=== PATIENT | female | born 1965 | race Caucasian/White ===

== ENCOUNTER 2017-01-10 10:07 | Observation (INO) | payer BC, OTHER ==
[2016-12-30 14:44] VITALS: BMI 42.0
--- NOTE | 2016-12-30 15:13 | PAT Medication Instructions ---
Service Date Dec 30, 2016. Current Home Medication List Acetaminophen Tab (Tylenol), 650 MG PO PRN Amlodipine (Norvasc), 5 MG PO HS Atorvastatin (Lipitor), 10 MG PO HS Ergocalciferol (Vitamin D 78683 Unit), 50,000 UNIT PO Q3D Escitalopram Oxalate (Lexapro), 20 MG PO HS Ethinyl Estrad/Norgestimate (Sprintec 28), 1 TAB PO HS Ibuprofen (Advil), 600 MG PO QAM Lamotrigine (Lamictal), 150 MG PO BID Trazodone Hcl (Trazodone), 100 MG PO HS [Demaadex], 2 TAB PO PRN [Omeprazole], 1 TAB PO PRN [Vitamin B12], 1 ML INJ [id number] Medication Instructions For Your Scheduled Surgery Ethinyl Estrad/Norgestimate (Sprintec 28), 1 TAB PO HS (will finish prior to surgery) Vitamin B12 1 ML INJ [id number] (continue as usual) - Hold the following medications the morning of surgery: Ibuprofen (Advil), 600 MG PO QAM (not told to stop by surgeon/only takes occasionally) Ergocalciferol (Vitamin D 97013 Unit), 50,000 UNIT PO Q3D Demadex 2 TAB PO PRN - Take the following medications the morning of surgery with a sip of water: Omeprazole, 1 TAB PO PRN Lamotrigine (Lamictal), 150 MG PO BID Acetaminophen Tab (Tylenol), 650 MG PO PRN (if needed) - Take the following medications as scheduled the night before surgery: Trazodone Hcl (Trazodone), 100 MG PO HS Lamotrigine (Lamictal), 150 MG PO BID Escitalopram Oxalate (Lexapro), 20 MG PO HS Amlodipine (Norvasc), 5 MG PO HS Atorvastatin (Lipitor), 10 MG PO HS Acetaminophen Tab (Tylenol), 650 MG PO PRN (if needed) If you have any questions please call us at [phone] or [phone] ( [place]) or [phone]
[2016-12-30 15:42] LABS: BASO % 0.4 %; BASO ABS # 0.04 K/uL (0-0.2); COMPLETE YES; EOS % 4.8 %; HEMATOCRIT 30.8 % (37-47); IG% 0.2 %; LYMPH % 19.9 %; LYMPH ABS # 1.87 K/uL (1.2-3.4); MEAN CELL VOLUME 79.6 fL (80-100); MEAN CORPUSCULAR HEMOGLOBIN 25.6 pg (25-34); MEAN CORPUSCULAR HGB CONC 32.1 g/dl (32-36); MEAN PLATELET VOLUME 9.5 fL (7.4-10.4); MONO % 7.1 %; NEUT % 67.6 %; PLATELET COUNT 456 K/uL (130-400); RED BLOOD COUNT 3.87 M/uL (4.2-5.4); WHITE BLOOD COUNT 9.41 K/uL (4.8-10.8)
[2016-12-30 16:11] LABS: CALCIUM 8.8 mg/dl (8.5-10.1); POTASSIUM 4.4 mmol/L (3.5-5.1)
[~2017-01-10] VITALS: Ht 160 cm; Wt 107.6 kg
[2017-01-10] VITALS (11 sets, daily range): BP systolic 107–154; BP diastolic 74–81; PULSE 85–95; TEMP 36.6–37.2; O2SAT 88–100; Ht 160 cm; Wt 107.6 kg
[~2017-01-10 10:07] MED LIST: ACET325T96 PO; AMLO-110 PO; ATOR10TA88 PO; CEFAZOLIN 3000 MG/65 ML D5W 50 ML IV SCH; ERGO500037 PO; ESCI1TAB10 PO; IBUP-1050 PO; LACTATED RINGER'S 1000ML 1,000 ML IV SCH; LAMO150T32 PO; OMEPRAZOLE PO; SPR28 PO; TRAZ100T29 PO; VITAMIN B12 INJ; [UNRECOGNIZED DRUG - OTHER] PO
[2017-01-10] MEDS: LACTATED RINGER'S 1000ML 1,000 ML IV SCH ×2 (10:50→20:21)
[2017-01-10 11:00] LABS: HEMATOCRIT 28.7 % (37-47); MEAN CELL VOLUME 78.6 fL (80-100); MEAN CORPUSCULAR HEMOGLOBIN 24.4 pg (25-34); MEAN PLATELET VOLUME 9.4 fL (7.4-10.4); PLATELET COUNT 390 K/uL (130-400); RED BLOOD COUNT 3.65 M/uL (4.2-5.4)
[2017-01-10 11:17] LABS: PREG INTERNAL NEGATIVE QC NEG CLEAR BACKGROUND; PREG INTERNAL POSITIVE QC POS CONTROL LINE
--- NOTE | 2017-01-10 12:30 | History & Physical Bridge Note ---
H&P Re-Evaluation Bridge Note: I have examined the patient, reviewed the History & Physical and in the interval since the performance of the History & Physical I have noted the following changes of clinical significance: Discussed with patient that, including removal of uterus/cervix, will plan to remove bilateral fallopian tubes - patient agreeable. While the plan is not to remove ovaries, if indicated during case, patient consents to removal of one or both ovaries if needed. Allergy to penicillin (rash) - patient has tolerated keflex in the past and will plan to use Ancef 3g as antibiotic prophylaxis. Patient requests that she receive vicodin for postop pain control instead of percocet, as she feels like percocet does not let her sleep. Rx given to family to have filled.
[2017-01-10] MEDS ORDERED: HYDR-5688 PO (12:31)
[2017-01-10] MEDS ORDERED: BUPIVACAINE 0.5 % 5 MG/1 ML MPF 30ML VIAL ONE (12:32)
[2017-01-10] MEDS ORDERED: METHYLENE BLUE 0.5% 10 ML VIAL ONE (12:32)
[2017-01-10] MEDS ORDERED: MIDAZOLAM HCL 1 MG/ML 2ML VIAL ONE (12:34)
[2017-01-10] MEDS ORDERED: FENTANYL CITRATE INJ 50 MCG/1 ML 2 ML VIAL ONE (12:34)
[2017-01-10] MEDS ORDERED: PHENYLEPHRINE HCL INJ 10 MG/ML VIAL ONE (13:27)
[2017-01-10] MEDS ORDERED: ONDANSETRON INJ 2 MG/ML 2 ML VIAL ONE (13:27)
[2017-01-10] MEDS ORDERED: PROPOFOL IV EMULSION 10 MG/ML 20 ML VIAL IV ONE (13:27)
[2017-01-10] MEDS ORDERED: NEOSTIGMINE METHYLSULFATE 5 MG/5 ML SYR ONE (13:27)
[2017-01-10] MEDS ORDERED: LARYING-O-JET KIT (LTA) EXT ONE ×2 (13:27)
[2017-01-10] MEDS ORDERED: DEXAMETHASONE SOD INJ 4 MG/ML VIAL ONE (13:27)
[2017-01-10] MEDS ORDERED: LIDOCAINE HCL 2% 2 ML VIAL (20MG/ML) ONE (13:27)
[2017-01-10] MEDS ORDERED: ROCURONIUM BROMIDE 10 MG/ML 5 ML VIAL ONE (13:27)
[2017-01-10] MEDS ORDERED: KETOROLAC TROMETHAMINE 30 MG/ML VIAL ONE (13:27)
[2017-01-10] MEDS ORDERED: ATROPINE SULFATE 0.1 MG/ML 5ML SYR IV PRN (13:30)
[2017-01-10] MEDS ORDERED: PHENYLEPHRINE 100MCG/ML 5ML SYR IV PRN (13:30)
[2017-01-10] MEDS ORDERED: ONDANSETRON INJ 2 MG/ML 2 ML VIAL IV PRN ×2 (13:30→16:45)
[2017-01-10] MEDS ORDERED: EpHEDrine SULFATE INJ 50 MG/ML AMP IV PRN (13:30)
[2017-01-10] MEDS ORDERED: PHENYLEPHRINE 100MCG/ML 5ML SYR ONE (15:13)
[2017-01-10] MEDS ORDERED: EpHEDrine SULFATE 50MG/5ML SYR ONE (15:20)
[2017-01-10] MEDS ORDERED: TISSEEL FIBRIN SEALANT 4ML TOP ONE (16:15)
--- NOTE | 2017-01-10 16:32 | [facility] Post Operative Brief Note ---
Immediate Operative Summary Operative Date Jan 10, 2017. Pre-Operative Diagnosis Dysfunctional Uterine Bleeding, Uterine fibroids Post-Operative Diagnosis Same as preop Procedure(s) Performed Total Laparoscopic Hysterectomy Bilateral Salpingectomy Robot Assist, Cystoscopy Surgeon Dr. Martinez Garment Folder Surgeon(s) Dr. Alfredo Estimated Blood Loss 25 ml Findings Enlarged uterus with multiple fibroids. Normal appearing tubes and ovaries. Bladder appears normal with bilateral urine jets from ureters. Specimens A. Cervix, Uterus, and Bilateral Fallopian Tubes Drains Hester, clear blue-yellow Anesthesia General Complication(s) None Disposition Recovery Room / PACU
[2017-01-10] MEDS: HYDROmorphone INJ 2 MG/ML SYR/VIAL IV PRN ×2 (16:40→16:50)
[2017-01-10] MEDS ORDERED: PROMETHAZINE HCL INJ 25 MG in SODIUM CHLORIDE 0.9% 50ML 50 ML IV PRN (16:45)
[2017-01-10] MEDS ORDERED: SIMETHICONE 80 MG CHEW PO PRN (16:45)
[2017-01-10] MEDS ORDERED: IBUPROFEN 600 MG TAB PO PRN (16:45)
[2017-01-10] MEDS ORDERED: ZOLPIDEM TARTRATE 5 MG TAB PO PRN (16:45)
[2017-01-10] MEDS ORDERED: MAGNESIUM HYDROXIDE SUSP 30 ML UDC PO PRN (16:45)
[2017-01-10] MEDS ORDERED: KETOROLAC TROMETHAMINE 30 MG/ML VIAL IV. PRN (16:45)
[2017-01-10] MEDS ORDERED: HYDROCODONE/ACETAMOPHEN 5/325MG TAB PO PRN ×2 (16:45)
--- NOTE | 2017-01-10 17:01 | Anesthesiology Progress Note ---
Anesthesia Post Op Note Date & Time Jan 10, 2017 at 17:01 Vital Signs Pain Intensity: 6 Vital Signs Past 12 Hours Date Time Temp Pulse Resp B/P Pulse Ox O2 Delivery O2 Flow Rate FiO2 01/10/17 16:43 117/80 01/10/17 16:40 91 16 01/10/17 16:40 90 16 100 01/10/17 16:38 138/84 01/10/17 16:35 92 16 01/10/17 16:35 92 16 100 01/10/17 16:33 112/90 01/10/17 16:30 36.4 104 16 129/73 98 Mask 10 01/10/17 16:30 97 14 01/10/17 16:30 97 14 100 01/10/17 10:40 37.2 95 20 154/77 97 Room Air Notes Mental Status: alert / awake / arousable, participated in evaluation Pt Amnestic to Procedure: Yes Nausea / Vomiting: adequately controlled Pain: adequately controlled Airway Patency, RR, SpO2: stable & adequate BP & HR: stable & adequate Hydration State: stable & adequate Anesthetic Complications: no major complications apparent
--- NOTE | 2017-01-10 17:14 | Discharge Instructions ---
Discharge Instructions Admission Reason for Admission: Abnormal Menses, Dysfunction Uterine Bleeding, Fib Discharge Discharge Diagnosis / Problem: s/p robotic-assisted laparoscopic hysterectomy Discharge Goals Goal(s): Routine recovery after surgery Activity Recommendations Activity Limitations: per Instructions/Follow-up section . Instructions / Follow-Up Instructions / Follow-Up POST OPERATIVE: BOWEL FUNCTION/MEDICATIONS: 1. Constipation pain and discomfort are the most common complaints 5-7 days after surgery. Points 2-6 address the things that can help. 2. Chewing gum can help stimulate the gut and help improve digestion and motility. 3. Milk of Magnesia 1-2 times per day until return of bowel function. 4. Colace is a stool softener that helps. Taking this 2-3 times per day until bowel function returns to normal is highly recommended. 5. Dulcolax is a laxative that may be used if several days have passed without a bowel movement. Alternatively Miralax may be used daily instead. 6. Drink plenty of fluids as this will also reduce constipation. 7. Narcotic pain medications will be prescribed by your physician. They are safe to use and we encourage you to use them. If you are not allergic, ibuprofen will also be prescribed. Many patients will be able to transition off of the narcotic medications to ibuprofen by postoperative day 3. ACTIVITY RECOMMENDATIONS: 1. Get plenty of rest and listen to your body. If you are tired, take a nap. 2. You may shower, but do not take a tub bath until you see your doctor at the 2 week post operative visit. 3. Absolutely NO intercourse and nothing in the vagina until you are examined by your doctor at the 6 week visit. At that visit it will be determined when such activities can be resumed. This can range from 6-12 weeks after your surgery depending on healing time. 4. The main physical activity in the first week should be walking. By the second week you can slowly increase activity. There are no limits on walking up and down stairs. 5. Do not lift more than 5-10 lbs for 4 weeks. Remember the "one-handed rule", i.e. if you can lift something with only one hand it's likely okay. 6. Minimize audioprosthologist like vacuuming and exercising for 4 weeks. "Overdoing it" can lead to incisions not healing, pain and vaginal bleeding , so again, listen to your body. 7. Driving can be resumed when you feel able. Do not drive within 24 hours of taking a narcotic medication. EXPECTATIONS: 1. Vaginal spotting, bleeding and discharge are common after surgery. There may even be an odor to the discharge which is often related to sutures used in the vagina. If you experience heavy vaginal bleeding, call the office number day or night [phone]. 2. Bladder discomfort is common after surgery from the catheter. This usually resolves in 1-2 weeks. 3. By the end of the 3rd or 4th week you should be feeling much better. It may take up to 6 weeks for your energy levels to return to normal. 4. Narcotic medications have side effects such as: dizziness, headache, nausea and/or vomiting. If you suspect your pain medication is causing problems, call our office and we may be able to prescribe an alternate medication. 5. The skin incisions are often covered with a liquid bandage. This will gradually peel off over time. CALL THE OFFICE IF YOU HAVE ANY OF THE FOLLOWIN. Temperature of 101 degrees or higher. 2. Severe abdominal or pelvic pain not relieved by pain medication. 3. Persistent nausea or vomiting. 4. Increased pain with urination or difficulty urinating. 5. Bright red bleeding that soaks more than 1 pad per hour. CONTACT PHONE NUMBERS: Main Office: [phone] Surgical Nurse: [phone] extension [phone] Avoid all tobacco products. If you need help to stop smoking, call [place]'s FREE QUITLINE at . This is a free call. Current Hospital Diet Patient's current hospital diet: Discharge Diet Recommended Diet: Regular Diet Procedures Procedures Performed: Total Laparoscopic Hysterectomy Bilateral Salpingectomy Robot Assist, Cystoscopy Pending Studies Studies pending at discharge: no Medical Emergencies . Who to Call and When: Medical Emergencies: If at any time you feel your situation is an emergency, please call 911 immediately. . Non-Emergent Contact Non-Emergency issues call your: Primary Care Provider, Electric Motor Tester Assembler . . "Provider Documentation" section prepared by Flora Martinez. VTE Core Measure Inpt VTE Proph given/why not?: Enoxaparin (Lovenox)SQ
[2017-01-10] MEDS: IV FLUIDS COMPLETED PRN ×2 (20:21→23:20)
[2017-01-10 20:39] LABS: HEMATOCRIT 28.2 % (37-47)
[2017-01-10] MEDS: DOCUSATE SODIUM 100 MG CAP PO SCH (20:46)
[2017-01-10 20:51] LABS: INR 1.1 (0.9-1.1); PARTIAL THROMBOPLASTIN RATIO 0.9; PROTHROMBIN TIME (PATIENT) 11.3 SECONDS (9.0-12.0)
[2017-01-10] MEDS ORDERED: ATORVASTATIN 10 MG TAB PO SCH (21:00)
[2017-01-10] MEDS ORDERED: ESCITALOPRAM OXALATE 20 MG TAB PO SCH (21:00)
[2017-01-10] MEDS: TRAZODONE HCL 100 MG TAB PO SCH ×2 (21:00→23:42)
[2017-01-10] MEDS ORDERED: AMLODIPINE BESYLATE 5 MG TAB PO SCH (21:00)
[2017-01-11 00:20] VITALS: O2SAT 87; O2SAT 92
[2017-01-11] MEDS ORDERED: NURSING VERBAL MED ORDER ONE (01:15)
--- NOTE | 2017-01-11 01:21 | OPERATIVE REPORT ---
DATE OF OPERATION: 01/10/2017 PREOPERATIVE DIAGNOSES: 1. Abnormal uterine bleeding. 2. Fibroid uterus. POSTOPERATIVE DIAGNOSES: Same. PROCEDURES PERFORMED: Total laparoscopic hysterectomy and bilateral salpingectomy with robot assist and cystoscopy. SURGEON: Flora Martinez DO AERONAUTICAL PROJECT ENGINEER: Bright Alfredo MD ESTIMATED BLOOD LOSS: 25 mL. FINDINGS: Enlarged uterus with multiple fibroids, normal appearing tubes and ovaries, bladder appears normal with bilateral urine jets from the ureters. SPECIMENS: Cervix, uterus and bilateral fallopian tubes. DRAINS: Hester, clear yellow and blue tinted due to methylene blue administration. ANESTHESIA: General. COMPLICATIONS: None. DISPOSITION: Stable and good to recovery room/PACU. INDICATIONS FOR PROCEDURE: The patient is a 51-year-old with abnormal uterine bleeding. She describes changing a pad every 2 hours with irregular periods. Multiple attempts were made in August 2016 to perform endometrial biopsy, but unable to pass the catheter through cervix to collect sample. Pelvic ultrasound shows multiple small fibroids. I had discussed with her the need for endometrial sampling; however, she declined a separate procedure to have a D\T\C performed and desired hysterectomy to be performed without prior sampling with the understanding that this could lead to a missed diagnosis of endometrial cancer which could require multiple surgeries and require treatment by a different surgeon for an additional surgery if pathology is positive. Pap smear performed in May 2016 was normal. Mammogram in May was normal. Had a colonoscopy 2 years ago and was told to come back in 5 years. DESCRIPTION OF PROCEDURE: The patient was seen in the preoperative holding area where risks, benefits, alternatives were reviewed. She elected to proceed with surgery. She had previously signed informed consent in the office under no duress. She was taken to the operating room where general anesthesia was introduced. 3 grams of Ancef was infused. A timeout was called and correct patient positioning, personnel, preoperative medications and procedure were all confirmed and everyone in the room was in agreement. She was prepared and draped in the usual sterile fashion in the dorsal lithotomy position with feet in Yellofin stirrups. The uterine manipulator was placed first. The weighted speculum was placed in the vagina. Cervix was visualized and the anterior lip was grasped with a single tooth tenaculum. Bilateral stay sutures were placed at 3 and 9 o'clock. The Hester catheter was placed and clear yellow urine returned. The cervix was sequentially dilated to admit the [employer] uterine manipulator. This was placed in the uterine cavity. The stay sutures were tied through the green cup. The manipulator was tightened and gloves and gown were changed and attention was then turned to the abdomen and infraumbilical incision was made with a scalpel and using the open Lizzie technique, the trocar site was opened to the peritoneum. The fascia was tagged on bilateral sides with 0 Vicryl and the Lizzie trocar was placed. The camera was inserted and the patient was placed in steep Trendelenburg position in the abdominal cavity was visualized. Two trocar sites were then placed on each side of the abdomen under direct visualization. The robot was docked using 3 arms and one statistical assistant port. The robotic instrument arms were placed. The left fallopian tube was transected in the mesosalpinx and excised and removed from the pelvis and sent to pathology for further review. In a similar fashion, the right fallopian tube was excised. The left uteroovarian ligament was cauterized and transected. The left round ligament was cauterized and transected and the broad ligament was using blunt and sharp dissection. The left ureter was visualized and peristalsing. The left uterine vessels were skeletonized. In a similar fashion, the right uteroovarian ligament and round ligament were cauterized and transected and the right broad ligament was dissected bluntly and sharply and the right ureter was visualized peristalsing. The bladder flap was created. The anterior leaf of broad ligament was transected and dissected off the anterior aspect of the uterus, and bilateral uterine vessels were cauterized multiple times and transected. The vaginal cuff was visible and palpable using the robot instruments. The uterus and cervix were amputated at the level of the vaginal fornix with monopolar cautery and the uterus was then delivered through the vagina. This required multiple attempts due to the enlarged size of the uterus due to uterine fibroids. The uterus was eventually delivered vaginally without transecting the uterus in the process. The vaginal cuff was closed using V-Loc suture in a running stitch incorporating vaginal mucosa and posterior peritoneum in the closure. A low pressure test was performed and all pedicles and the vaginal cuff appeared hemostatic. It was irrigated and suctioned. A cystoscopy was performed and the bladder interior was smooth with no invading sutures. Bilateral urine jets were visualized in the ureters. No abnormalities were noted in the bladder. The cystoscope was withdrawn. Tisseel hemostatic agent was used along the all pedicles on the vaginal cuff. Again, excellent hemostasis was visualized. The robot was undocked and the patient was leveled and all laparoscopic trocars were removed. The fascia was reapproximated at the umbilical site with 0 Vicryl and the skin at all trocar sites was reapproximated using 4-0 Vicryl in a running subcuticular stitch. Dermabond surgical glue was used at the incision sites. The patient was awoken from anesthesia and taken to the recovery area in stable and good condition. I attest to the content of the Intraoperative Record and any orders documented therein. Any exceptio ns are noted below.
[2017-01-11 04:05] VITALS: BP 106/69; PULSE 80; TEMP 37.1; O2SAT 94
[2017-01-11] MEDS ORDERED: ENOXAPARIN 40 MG/0.4 ML SYR SQ SCH (06:00)
[2017-01-11 07:45] VITALS: BP 127/76; PULSE 82; TEMP 37; O2SAT 92
[2017-01-11 08:04] LABS: BASO % 0.1 %; BASO ABS # 0.01 K/uL (0-0.2); EOS % 0.1 %; HEMATOCRIT 26.9 % (37-47); IG% 0.3 %; LYMPH % 13.6 %; MEAN CELL VOLUME 77.5 fL (80-100); MEAN CORPUSCULAR HEMOGLOBIN 24.5 pg (25-34); MEAN CORPUSCULAR HGB CONC 31.6 g/dl (32-36); MEAN PLATELET VOLUME 8.6 fL (7.4-10.4); MONO % 6.9 %; PLATELET COUNT 360 K/uL (130-400); RED BLOOD COUNT 3.47 M/uL (4.2-5.4); WHITE BLOOD COUNT 11.06 K/uL (4.8-10.8)
--- NOTE | 2017-01-11 08:10 | Progress Note ---
Progress Note POD#1 Doing well, ambulating well. Tolerating PO. Scant vaginal bleeding. Passing gas. Hungry. Anticipating going home. Date Time Temp Pulse Resp B/P Pulse Ox O2 Delivery O2 Flow Rate FiO2 01/11/17 04:05 37.1 80 16 106/69 94 Nasal Cannula 0.5 01/11/17 00:20 92 Nasal Cannula 0.5 01/11/17 00:20 87 Room Air 01/10/17 23:20 93 Room Air 01/10/17 23:20 37.0 85 16 107/74 93 Room Air 01/10/17 22:15 95 Room Air 01/10/17 21:36 93 Nasal Cannula 1.0 01/10/17 21:35 88 Room Air 01/10/17 20:50 96 Room Air 01/10/17 20:25 37.0 92 16 138/78 96 Nasal Cannula 2.0 01/10/17 19:25 37.0 92 16 137/81 95 Nasal Cannula 2.0 01/10/17 18:20 36.6 90 16 135/79 97 Nasal Cannula 1.0 01/10/17 17:55 37.1 88 18 131/76 96 Nasal Cannula 2.0 01/10/17 17:25 37.1 92 16 124/75 97 Nasal Cannula 4.0 01/10/17 17:25 100 Nasal Cannula 4.0 01/10/17 17:25 97 Nasal Cannula 4.0 01/10/17 17:10 87 16 124/77 98 Nasal Cannula 4 01/10/17 17:08 36.8 01/10/17 17:00 92 25 100 01/10/17 17:00 92 25 01/10/17 16:58 131/66 01/10/17 16:55 91 16 94 01/10/17 16:55 91 16 01/10/17 16:54 89 16 93 01/10/17 16:54 91 16 01/10/17 16:53 115/70 01/10/17 16:49 94 14 96 01/10/17 16:49 94 14 01/10/17 16:48 134/85 01/10/17 16:44 91 16 01/10/17 16:44 91 16 99 01/10/17 16:43 117/80 01/10/17 16:40 91 16 01/10/17 16:40 90 16 100 01/10/17 16:38 138/84 01/10/17 16:35 92 16 01/10/17 16:35 92 16 100 01/10/17 16:33 112/90 01/10/17 16:30 36.4 104 16 129/73 98 Mask 10 01/10/17 16:30 97 14 01/10/17 16:30 97 14 100 01/10/17 10:40 37.2 95 20 154/77 97 Room Air Physical exam: Gen: AAOx3 NAD CV: [id number] L: CTAB Abd: soft, NTTP. incisions healing well - C/D/I Ext: no edema, EPCs in place, no calf tenderness : No bleeding 01/11/17 07:52 Red Blood Count 3.47, Mean Corpuscular Volume 77.5, Mean Corpuscular Hemoglobin 24.5, Mean Corpuscular Hemoglobin Concent 31.6, Mean Platelet Volume 8.6, Neutrophils (%) (Auto) 79.0, Lymphocytes (%) (Auto) 13.6, Monocytes (%) (Auto) 6.9, Eosinophils (%) (Auto) 0.1, Basophils (%) (Auto) 0.1, Neutrophils # (Auto) 8.75, Lymphocytes # (Auto) 1.50, Monocytes # (Auto) 0.76, Eosinophils # (Auto) 0.01, Basophils # (Auto) 0.01 Test 01/10/17 10:45 01/10/17 20:24 01/11/17 07:52 Human Chorionic Gonadotropin, Qual NEG (NEG) Prothrombin Time 11.3 SECONDS (9.0-12.0) Prothromb Time International Ratio 1.1 (0.9-1.1) Activated Partial Thromboplast Time 23.3 SECONDS (21.0-31.0) Partial Thromboplastin Ratio 0.9 White Blood Count 11.06 K/uL (4.8-10.8) Red Blood Count 3.47 M/uL (4.2-5.4) Hemoglobin 8.5 g/dL (12.0-16.0) Hematocrit 26.9 % (37-47) Mean Corpuscular Volume 77.5 fL (80-100) Mean Corpuscular Hemoglobin 24.5 pg (25-34) Mean Corpuscular Hemoglobin Concent 31.6 g/dl (32-36) Platelet Count 360 K/uL (130-400) Mean Platelet Volume 8.6 fL (7.4-10.4) Neutrophils (%) (Auto) 79.0 % Lymphocytes (%) (Auto) 13.6 % Monocytes (%) (Auto) 6.9 % Eosinophils (%) (Auto) 0.1 % Basophils (%) (Auto) 0.1 % Neutrophils # (Auto) 8.75 K/uL (1.4-6.5) Lymphocytes # (Auto) 1.50 K/uL (1.2-3.4) Monocytes # (Auto) 0.76 K/uL (0.11-0.59) Eosinophils # (Auto) 0.01 K/uL (0-0.5) Basophils # (Auto) 0.01 K/uL (0-0.2) RDW Standard Deviation 35.9 fL (36.4-46.3) RDW Coefficient of Variation 12.7 % (11.5-14.5) Immature Granulocyte % (Auto) 0.3 % Immature Granulocyte # (Auto) 0.03 K/uL (0.00-0.02) A/P POD#1 RALH with BS, ovarian preservation, cystoscopy OK for discharge to home today. Discussed discharge instructions, questions answered, patient states understanding. Office followup 2 weeks. Rx for [place] given to family member yesterday to be filled.
[2017-01-11] MEDS: DOCUSATE SODIUM 100 MG CAP PO SCH (08:17)
[2017-01-11 08:30] LABS: COMPLETE YES
[2017-01-11 08:40] LABS: BUN/CREATININE RATIO 9.3 (10-20); CALCIUM 8.4 mg/dl (8.5-10.1)
[2017-01-11 08:41] VITALS: BP 127/76; PULSE 82; TEMP 37; O2SAT 92
--- NOTE | 2017-01-11 10:13 | Anesthesiology Progress Note ---
Anesthesia Post Op Note Date & Time Jan 11, 2017 at 10:11 Vital Signs Pain Intensity: 3.0 Vital Signs Past 12 Hours Date Time Temp Pulse Resp B/P Pulse Ox O2 Delivery O2 Flow Rate FiO2 01/11/17 08:41 37.0 82 16 92 Room Air 01/11/17 07:45 37.0 82 16 127/76 92 Room Air 01/11/17 07:45 Room Air 01/11/17 04:05 37.1 80 16 106/69 94 Nasal Cannula 0.5 01/11/17 00:20 92 Nasal Cannula 0.5 01/11/17 00:20 87 Room Air 01/10/17 23:20 93 Room Air 01/10/17 23:20 37.0 85 16 107/74 93 Room Air 01/10/17 22:15 95 Room Air Notes Mental Status: alert / awake / arousable, participated in evaluation Pt Amnestic to Procedure: Yes Nausea / Vomiting: adequately controlled Pain: adequately controlled Airway Patency, RR, SpO2: stable & adequate BP & HR: stable & adequate Hydration State: stable & adequate Anesthetic Complications: no major complications apparent
--- NOTE | 2017-01-17 11:33 | DISCHARGE SUMMARY ---
PRE-OPERATIVE DIAGNOSES: 1. Abnormal uterine bleeding. 2. Fibroid uterus. POSTOPERATIVE DIAGNOSES: Same. PROCEDURES PERFORMED: 1. Total laparoscopic hysterectomy and bilateral salpingectomy with robotic assist and cystoscopy. COURSE OF STAY: The patient was admitted following the above-noted procedures for postoperative observation. Her postoperative course was unremarkable. She was discharged to home 01/11/2017 in the morning. CONDITION ON DISCHARGE: Stable and good. INFECTION: None. ACTIVITY: No heavy lifting. Pelvic rest. DIET: Regular. FOLLOWUP: Two weeks in the office. MEDICATIONS: Motrin and Percocet.
== END 2017-01-11 11:15 | disposition home or self-care (01) ==
LOC: ENRESERVDT → ENRESERVTM → C.ACU 10:07 → C.MS4N 16:40
PROVIDERS: ADMIT Obstetrics & Gynecology; ATTEND Obstetrics & Gynecology
DX: N93.8 Other specified abnormal uterine and vaginal bleeding (principal); N84.0 Polyp of corpus uteri; D25.1 Intramural leiomyoma of uterus; F32.9 Major depressive disorder, single episode, unspecified; N92.0 Excessive and frequent menstruation with regular cycle; Z80.52 Family history of malignant neoplasm of bladder; Z81.8 Family history of other mental and behavioral disorders; Z79.899 Other long term (current) drug therapy
CPT/HCPCS: 58571; S2900